=== PATIENT | female | born 1970 | race Caucasian/White ===

== ENCOUNTER 2017-02-01 19:29 | Emergency (ER) | payer BC ==
[2017-02-01 19:37] VITALS: BP 140/77
[2017-02-01] MEDS ORDERED: Aspirin Low Dose CHEW TAB* 81 MG PO ONE (19:53)
[2017-02-01] MEDS ORDERED: Nitroglycerin TAB 0.4 MG* 0.4 MG TAB SL ONE (19:53)
--- NOTE | 2017-02-01 20:07 | UC ---
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 HAD SOME ASSOCIATED SOB. HAS GOTTEN BETTER OVER THE DAY BUT IS PERSISTENT. NO NAUSEA OR SWEATS. PAIN RADIATED UP TO HER SHOULDERS. TOOK 2 BABY ASA AT HOME. - History of Current Complaint Chief Complaint: UCChestPain Stated Complaint: CHEST PAIN Time Seen by Provider: 02/01/17 19:36 Hx Obtained From: Patient, Family/Perforator Operator [employer] - MOM AND STEP DAD Onset/Duration: Sudden Onset, Lasting Hours, Still Present Timing: Constant Initial Severity: Moderate Current Severity: Moderate Pain Intensity: 5 Chest Pain Location: Mid Sternal Character: Tightness Aggravating: Nothing Alleviating: NTG 123 - BETTER AFTER 0.4MG NTG SL Associated Signs & Symptoms: Positive: Chest Pain, SOB. Negative: Fever, Diaphoresis, Nausea/Vomiting, Palpitations, Hemoptysis - Allergy/Home Medications Allergies/Adverse Reactions: Allergies Allergy/AdvReac Type Severity Reaction Status Date / Time No Known Allergies Allergy Verified 02/01/17 19:39 PMH/Surg Hx/FS Hx/Imm Hx Previously Healthy: Yes - Surgical History Surgical History: None - Family History Known Family History: Positive: Cardiac Disease - DAD - Social History Alcohol Use: Occasionally Substance Use Type: None Smoking Status (MU): Current Every Day Smoker Type: Cigarettes Amount Used/How Often: 1/2ppd Review of Systems Constitutional: Negative Respiratory: Shortness Of Breath Cardiovascular: Chest Pain Gastrointestinal: Negative Genitourinary: Negative All Other Systems Reviewed And Are Negative: Yes Physical Exam Triage Information Reviewed: Yes Appearance: Well-Appearing, No Pain Distress, Well-Nourished Vital Signs: Initial Vital Signs Temp 98.4 F 02/01/17 19:37 Pulse 101 02/01/17 19:37 Resp 18 02/01/17 19:37 BP 140/77 02/01/17 19:37 Pulse Ox 97 02/01/17 19:37 Vital Signs Reviewed: Yes Eyes: Positive: Conjunctiva Clear ENT: Positive: Hearing grossly normal Neck: Positive: Supple Respiratory Exam: Normal Cardiovascular: Positive: Pulses Normal, Murmur:Sys:Grade _?_/ - 1/ Abdomen Description: Positive: Soft Musculoskeletal: Positive: No Edema Neurological: Positive: Alert Psychological: Positive: Normal Response To Family, Age Appropriate Behavior Skin: Negative: rashes Diagnostics - EKG Cardiac Rate: NL - 91 BPM Cardiac Rhythm: Sinus: Normal Ectopy: None ST Segment: Non-Specific - MINIMAL ST ELEVATION V1, V2, V3 - Assessment/Plan Course Of Treatment: 2 ADDITIONAL LOW DOSE ASA GIVEN ALONG WITH 0.4MG NTG SL. PT REPORTS SOME IMPROVEMENT IN HER CP AFTER NTG. 2L OXYGEN BY NC. PIV PLACED AND PT TRANSPORTED BY AMBULANCE. - Clinical Impression Provider Diagnoses: CHEST PAIN - Physician Notifications Discussed Patient Care With: Shannon Escobedo - TO [facility]ANCE Time Discussed With Above Provider: 20:00 Instructed by Provider To: MD Will See In ED Discharge - Discharge Plan Condition: Stable Disposition: TRANS HIGHER LVL OF CARE FAC Referrals: No Primary Care Phys,NOPCP [Primary Care Provider] -
== END 2017-02-01 20:15 | disposition short-term general hospital (02) ==
LOC: UCEAST 19:29
DX: R07.2 Precordial pain (principal); Z72.0 Tobacco use
CPT/HCPCS: 93005; 99214; A9270-GY; G0463

== ENCOUNTER 2017-02-01 20:41 | Emergency (ER) | payer BC ==
[2017-02-01] MEDS ORDERED: Aspirin Low Dose CHEW TAB* 81 MG PO ONE (21:15)
[2017-02-01 21:25] LABS: Hematocrit 38 % (35-47); Mean Corpuscular HGB Conc 34 g/dl (31-36); Mean Corpuscular Hemoglobin 32 pg (27-31); Mean Corpuscular Volume 94 fL (80-97); Mean Platelet Volume 8 um3 (7.4-10.4); Red Blood Count 4.04 10^6/ul (4.0-5.4); Red Cell Distribution Width 14 % (10.5-15); White Blood Count 11.5 10^3/ul (3.5-10.8)
[2017-02-01 21:37] LABS: Albumin 3.9 g/dL (3.2-5.2); BUN/Creatinine Ratio 9.4 (8-20); Calcium 9.2 mg/dL (8.6-10.3); EGFR African American 92.2 (>60); EGFR Non-African American 71.7 (>60); Globulin 2.8 g/dL (2-4); Potassium 3.8 mmol/L (3.5-5.0); Total Bilirubin 0.4 mg/dL (0.2-1.0); Total Protein 6.7 g/dL (6.4-8.9)
--- NOTE | 2017-02-01 21:44 | RAD ---
INDICATION: Chest pain COMPARISON: None TECHNIQUE: An AP portable view obtained at 2119 hours is submitted. FINDINGS: Bones/Soft Tissues: There are no acute bony findings. Cardiomediastinal: The cardiomediastinal silhouette is normal. Lungs: There are no infiltrates. Pleura: There are no pleural effusions. Other: None IMPRESSION: NO ACTIVE DISEASE.
[2017-02-01] MEDS ORDERED: Pantoprazole IV* 40 MG IV ONE (21:58)
--- NOTE | 2017-02-02 01:05 | ED ---
Bello Warren Benjamin, scribed for Shannon Escobedo MD on 02/01/17 at 2141 . HPI Chest Pain - HPI Summary HPI Summary: 46yo female c/o sudden onset of 7/10 chest tightness at 1030 with difficulty breathing in deep. Symptoms lasted up to 1430 today. Pain resolved with time, subsided to 2/10 around 1430, but pt still came to just as a precaution to be evaluated, and was then transferred from to ED by ambulance. Pt received NTG, ASA, and O2 at and pain further subsided to 1/10. Pt is a light every day smoker. FHx of MS (father) at his 50s. - History of Current Complaint Chief Complaint: EDChestPainROMI Time Seen by Provider: 02/01/17 20:47 Hx Obtained From: Patient, Family/Lock And Dam Operator - mother and step dad Onset/Duration: Started Hours Ago - today at 1030, Atraumatic, Resolved Time of Onset: 10:30 Timing: Constant, Lasting Hours - 4.5 hours Initial Severity: Moderate Current Severity: Mild Pain Intensity: 1 Pain Scale Used: 0-10 Numeric Chest Pain Location: Mid Sternal Chest Pain Radiates To:: Shoulder - bilat shoulders Character: Dyspnea at Exertion, Tightness Aggravating Factor(s): Nothing Alleviating Factor(s): NTG 123, Oxygen, Other: - ASA additional given in . Pt had taken 2 ASA at home Associated Signs and Symptoms: Positive: Chest Pain, Shortness of Breath - Risk Factors Pulmonary Embolism Risk Factors: Smoking TAD Risk Factors: Smoking, Family Hx AMI/ACS Risk Factors: Family History, Smoking - Allergy/Home Medications Allergies/Adverse Reactions: Allergies Allergy/AdvReac Type Severity Reaction Status Date / Time No Known Allergies Allergy Verified 02/01/17 19:39 PMH/Surg Hx/FS Hx/Imm Hx Previously Healthy: Yes Endocrine/Hematology History: Denies: Hx Diabetes, Hx Thyroid Disease Cardiovascular History: Denies: Hx Hypertension Respiratory History: Denies: Hx Asthma, Hx Chronic Obstructive Pulmonary Disease (COPD) GI History: Denies: Hx Ulcer Infectious Disease History: No Infectious Disease History: Denies: Hx Hepatitis, Hx Human Immunodeficiency Virus (HIV), Hx of Known/ Suspected MRSA, Hx Shingles, Hx Known/Suspected VRE, Hx Known/Suspected VRSA, History Other Infectious Disease, Traveled Outside the [place] in Last 30 Days - Family History Known Family History: Positive: Cardiac Disease - DAD, [place] at his 50s - Social History Occupation: Employed Full-time Lives: With Family Alcohol Use: Occasionally Substance Use Type: Reports: None Smoking Status (MU): Current Every Day Smoker Type: Cigarettes Amount Used/How Often: 1/2ppd Review of Systems Constitutional: Negative Eyes: Negative ENT: Negative Positive: Chest Pain Positive: Shortness Of Breath Gastrointestinal: Negative Genitourinary: Negative Musculoskeletal: Negative Skin: Negative Neurological: Negative Psychological: Normal All Other Systems Reviewed And Are Negative: Yes Physical Exam Triage Information Reviewed: Yes Vital Signs On Initial Exam: Initial Vitals Pulse Resp Pulse Ox 93 17 98 02/01/17 20:48 02/01/17 20:48 02/01/17 20:48 Vital Signs Reviewed: Yes Appearance: Positive: Well-Appearing, No Pain Distress, Well-Nourished Skin: Positive: Warm, Skin Color Reflects Adequate Perfusion Head/Face: Positive: Normal Head/Face Inspection Eyes: Positive: Conjunctiva Clear ENT: Positive: Hearing grossly normal. Negative: Muffled/hoarse voice Neck: Positive: Supple Respiratory/Lung Sounds: Positive: Clear to Auscultation, Breath Sounds Present Cardiovascular: Positive: RRR, Pulses are Symmetrical in both Upper and Lower Extremities. Negative: Murmur, Rub, Leg Edema Left, Leg Edema Right Abdomen Description: Positive: Nontender, No Organomegaly, Soft. Negative: Distended, Guarding, McBurney's Point Tenderness, Peritoneal Signs, Pulsatile Mass Musculoskeletal: Positive: Strength/ROM Intact Neurological: Positive: Sensory/Motor Intact, Alert, Oriented to Person Place, Time. Negative: Facial Droop, Focal Deficit @, Slurred Speech Psychiatric: Positive: Affect/Mood Appropriate - Aren Coma Scale Coma Scale Total: 15 Diagnostics - Vital Signs Vital Signs Temp Pulse Resp BP Pulse Ox 02/01/17 21:00 91 16 113/94 98 02/01/17 20:53 88 19 112/72 99 02/01/17 20:50 99.5 F 90 16 112/72 99 02/01/17 20:48 93 17 98 - Laboratory Lab Results: Lab Results 02/01/17 02/01/17 Range/Units 21:00 21:00 WBC 11.5 H (3.5-10.8) 10^3/ul RBC 4.04 (4.0-5.4) 10^6/ul Hgb 13.0 (12.0-16.0) g/dl Hct 38 (35-47) % MCV 94 (80-97) fL MCH 32 H (27-31) pg MCHC 34 (31-36) g/dl RDW 14 (10.5-15) % Plt Count 299 (150-450) 10^3/ul MPV 8 (7.4-10.4) um3 Neut % (Auto) 64.9 (38-83) % Lymph % (Auto) 24.1 L (25-47) % Marion % (Auto) 8.7 (1-9) % Eos % (Auto) 1.5 (0-6) % Baso % (Auto) 0.8 (0-2) % Absolute Neuts (auto) 7.5 (1.5-7.7) 10^3/ul Absolute Lymphs (auto) 2.8 (1.0-4.8) 10^3/ul Absolute Monos (auto) 1.0 H (0-0.8) 10^3/ul Absolute Eos (auto) 0.2 (0-0.6) 10^3/ul Absolute Basos (auto) 0.1 (0-0.2) 10^3/ul Absolute Nucleated RBC 0.01 10^3/ul Nucleated RBC % 0 Lactic Acid 1.6 (0.5-2.0) mmol/L Result Diagrams: 02/01/17 21:00 02/01/17 21:00 Lab Statement: Any lab studies that have been ordered have been reviewed, and results considered in the medical decision making process. - Radiology CXR Xray Interpretation: No Acute Changes Radiology Interpretation Completed By: Radiologist - EKG 2049. Cardiac Rate: NL - 91bpm EKG Rhythm: Sinus Rhythm ST Segment: Normal Ectopy: None EKG Interpretation: normal AV and IV conduction time, normal QTC, normal axes, no acute changes EKG Comparison: No Significant Change - to EKG taken on 02/01/17 at 1937. Re-Evaluation - Re-Evaluation First Eval Re-Evaluation Time: 22:02 Comment: Evaluated pt with Dr. Boykin. The plan is to check troponin level 6 hrs later,if trop level is normal, d/c pt with follow up referral for stress test with her electrician telephone in weeks and if trop abnormal, admit pt. Gave IV pantoprazole 40mg for possible GERD. Chest Pain Course/Dx - Course Course Of Treatment: Reviewed medication lists and known allergies. 46yo female c/o sudden onset of 7/10 chest tightness at 1030 with difficulty breathing in deep. Symptoms lasted up to 1430 today. Pain resolved with time, subsided to 2/10 around 1430, but pt still came to just as a precaution. Pt received NTG, ASA, and O2 at and pain further subsided to 1/10. Pt is a light every day smoker. FHx of MS (father) at his 50s. Physical exam revealed normal heart and lungs sounds, with no calf tenderness or leg edema. Evaluated pt with Dr. Boykin. The plan is to check troponin level 6 hrs later,if trop level is normal, d/c pt with follow up referral for stress test with refrigeration system installer electrician telephone within 2 weeks and if trop abnormal, admit pt. Gave IV pantoprazole 40mg for possible GERD. Pt is in agreement with this plan, as she wants to attend her daughter's high school graduation on 02/02/17. - Chest Pain Differential Diagnosis/HQI/PQRI: Acute MS, ACS, Angina, Chest Wall, GI Disease, Pulmonary Embolism - Diagnoses Provider Diagnoses: Tobacco abuse disorder, Chest pain - Provider Notifications Discussed Care Of Patient With: Dino Boykin - disscussed case Time Discussed With Above Provider: 21:38 Discharge - Discharge Plan Condition: Stable Disposition: OTHER Discharge Disposition Comment: care to Dr. Iniguez at midnight, change of shift with 6 hr troponin pending Referrals: No Primary Care Phys,NOPCP [Primary Care Provider] - The documentation as recorded by the Bello stubbs Benjamin accurately reflects the service I personally performed and the decisions made by me, Shannon Escobedo MD.
[2017-02-02 03:06] VITALS: BP 108/63
--- NOTE | 2017-02-02 05:38 | CONSULT ---
Consult Consult: PCP: none Date/Time of Evaluation: 02/01/2017 2300 Reason for Consult: chest pain, consideration for observation HPI: Mrs Ron is a 46YO female whose daughter is graduating from high school tomorrow. 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 Pain gradually subsided to 2/10, but she became more anxious and so decided to present for evaluation after going out to eat with her mother & step-father. She presented to urgent care where a SL nitro completely alleviated her pain and recommendation to come to [facility] ED was made. ECG is without ischemia, initial troponin is 0.00. As she is wanting to attend her daughter's graduation, it is reasonable to perform a r/o in ED and discharge so long as she remains pain-free and her 6H troponin is normal. The alternative of observation with stress testing in the AM was also offered, but she would prefer to pursue stress testing as an outpatient. PMedHx denies Ambulatory Orders NK [No Home Medications Reported] 10/08/14 Allergies No Known Allergies Allergy (Verified 02/01/17 19:39) SocHx: 1/2PPD cigarettes, mild alcohol, denies recreational drugs; full code status FamHx: Father passed in his 50s of CAD. ROS: as above, otherwise reviewed and all were negative Constitutional: NAD, normally developed, overweight white female vitals: Vital Signs Temp 37.5 C 02/01/17 20:50 Pulse 79 02/02/17 03:00 Resp 19 02/02/17 03:00 BP 108/63 02/02/17 03:00 Pulse Ox 95 02/02/17 03:00 Intake & Output 02/01/17 02/01/17 02/02/17 11:59 23:59 11:59 Weight 83.915 kg HEENM: atraumatic; sclera/conjunctiva: non-icteric/clear; hearing: clinically intact; oropharynx: clear, mucosa moist Neck: soft tissue: non-tender; thyroid: normal Pulmonary: clear to auscultation bilaterally, good aeration, no accessory muscle use CV: RR/RR, normal S1S2, no carotid bruit, no jugular venous distention, 2+ B DP/ PT, no edema Abdominal: soft, non-distended, non-tender, no rebound/guarding/rigidity, normoactive bowel sounds, no hepatosplenomegaly or masses, no costovertebral angle tenderness Musculoskeletal: general: grossly intact; gait: stable Integumental: normal appearance and texture of exposed skin Psychiatric orientation: AA&O to PPS affect: calm mood: cooperative eye contact: good content: reliable responses: timely insight: good Testing: Lab Results 02/01/17 02/01/17 02/01/17 Range/Units 21:00 21:00 21:00 WBC 11.5 H (3.5-10.8) 10^3/ul RBC 4.04 (4.0-5.4) 10^6/ul Hgb 13.0 (12.0-16.0) g/dl Hct 38 (35-47) % MCV 94 (80-97) fL MCH 32 H (27-31) pg MCHC 34 (31-36) g/dl RDW 14 (10.5-15) % Plt Count 299 (150-450) 10^3/ul MPV 8 (7.4-10.4) um3 Neut % (Auto) 64.9 (38-83) % Lymph % (Auto) 24.1 L (25-47) % Davidson % (Auto) 8.7 (1-9) % Eos % (Auto) 1.5 (0-6) % Baso % (Auto) 0.8 (0-2) % Absolute Neuts (auto) 7.5 (1.5-7.7) 10^3/ul Absolute Lymphs (auto) 2.8 (1.0-4.8) 10^3/ul Absolute Monos (auto) 1.0 H (0-0.8) 10^3/ul Absolute Eos (auto) 0.2 (0-0.6) 10^3/ul Absolute Basos (auto) 0.1 (0-0.2) 10^3/ul Absolute Nucleated RBC 0.01 10^3/ul Nucleated RBC % 0 Sodium 138 (133-145) mmol/L Potassium 3.8 (3.5-5.0) mmol/L Chloride 107 (101-111) mmol/L Carbon Dioxide 23 (22-32) mmol/L Anion Gap 8 (2-11) mmol/L BUN 8 (6-24) mg/dL Creatinine 0.85 (0.51-0.95) mg/dL Est GFR ( Amer) 92.2 (>60) Est GFR (Non-Af Amer) 71.7 (>60) BUN/Creatinine Ratio 9.4 (8-20) Glucose 100 (70-100) mg/dL Lactic Acid 1.6 (0.5-2.0) mmol/L Calcium 9.2 (8.6-10.3) mg/dL Total Bilirubin 0.40 (0.2-1.0) mg/dL AST 18 (13-39) U/L ALT 11 (7-52) U/L Alkaline Phosphatase 55 (34-104) U/L Troponin I 0.00 (<0.04) ng/mL Total Protein 6.7 (6.4-8.9) g/dL Albumin 3.9 (3.2-5.2) g/dL Globulin 2.8 (2-4) g/dL Albumin/Globulin Ratio 1.4 (1-3) 02/01/17 02/02/17 Range/Units 23:51 03:05 WBC (3.5-10.8) 10^3/ul RBC (4.0-5.4) 10^6/ul Hgb (12.0-16.0) g/dl Hct (35-47) % MCV (80-97) fL MCH (27-31) pg MCHC (31-36) g/dl RDW (10.5-15) % Plt Count (150-450) 10^3/ul MPV (7.4-10.4) um3 Neut % (Auto) (38-83) % Lymph % (Auto) (25-47) % Davidson % (Auto) (1-9) % Eos % (Auto) (0-6) % Baso % (Auto) (0-2) % Absolute Neuts (auto) (1.5-7.7) 10^3/ul Absolute Lymphs (auto) (1.0-4.8) 10^3/ul Absolute Monos (auto) (0-0.8) 10^3/ul Absolute Eos (auto) (0-0.6) 10^3/ul Absolute Basos (auto) (0-0.2) 10^3/ul Absolute Nucleated RBC 10^3/ul Nucleated RBC % Sodium (133-145) mmol/L Potassium (3.5-5.0) mmol/L Chloride (101-111) mmol/L Carbon Dioxide (22-32) mmol/L Anion Gap (2-11) mmol/L BUN (6-24) mg/dL Creatinine (0.51-0.95) mg/dL Est GFR ( Amer) (>60) Est GFR (Non-Af Amer) (>60) BUN/Creatinine Ratio (8-20) Glucose (70-100) mg/dL Lactic Acid (0.5-2.0) mmol/L Calcium (8.6-10.3) mg/dL Total Bilirubin (0.2-1.0) mg/dL AST (13-39) U/L ALT (7-52) U/L Alkaline Phosphatase (34-104) U/L Troponin I 0.00 0.00 (<0.04) ng/mL Total Protein (6.4-8.9) g/dL Albumin (3.2-5.2) g/dL Globulin (2-4) g/dL Albumin/Globulin Ratio (1-3) ECG, personally reviewed: NSR, no ischemia CXR, personally reviewed: IMPRESSION: NO ACTIVE DISEASE. Impression: 46F presenting with chest pain DIAGNOSIS & PLAN Primary chest pain : repeat 6H troponin, if negative may be discharged to f/u w/ on-call cardiology for outpatient stress w/i the next 2-3 weeks : return to ED via 911 for any chest discomfort, SOB, abnormal sweating, unexplained N/V, palpitations, light-headedness, or other issue which she feels needs emergency evalution : no lifting >10# or exertion until cleared by cardiology : give IV pantoprazole 40mg x1 now : Mrs Asaf Mitchell expresses understanding of the above, repeats, & agrees.
== END 2017-02-02 03:53 ==
LOC: ED 20:41
DX: R07.9 Chest pain, unspecified (principal); R06.02 Shortness of breath; F17.210 Nicotine dependence, cigarettes, uncomplicated
CPT/HCPCS: 36415; 71010; 80053; 83605; 84484; 85025; 96374; 99285

== ENCOUNTER 2018-04-17 11:51 | Emergency (ER) | payer BC ==
--- NOTE | 2018-04-17 13:08 | RAD ---
Indication: Left leg pain. 2 views of the left lower leg demonstrates no fracture. No other bone or joint abnormality is identified. IMPRESSION: Unremarkable left leg.
--- NOTE | 2018-04-17 13:15 | UC ---
Lower Extremity/Ankle HPI - HPI Summary HPI Summary: Jacquelin 47 yo female c/o intermittent left lat leg pain. Pain is deep, excruciating. No known recent or remote trauma. No p/d/w. No rash. No GI issues. No sob / cp / palpitations. - History of Current Complaint Chief Complaint: UCLowerExtremity Stated Complaint: LEG PAIN Time Seen by Provider: 04/17/18 12:19 Hx Obtained From: Patient Hx Last Menstrual Period: 03/24/18 Pain Intensity: 0 - Allergies/Home Medications Allergies/Adverse Reactions: Allergies Allergy/AdvReac Type Severity Reaction Status Date / Time No Known Allergies Allergy Verified 02/01/17 19:39 PMH/Surg Hx/FS Hx/Imm Hx Previously Healthy: Yes - Surgical History Surgical History: None - Family History Known Family History: Positive: Cardiac Disease - DAD, [place] at his 50s - Social History Occupation: Employed Full-time Alcohol Use: Occasionally Substance Use Type: None Smoking Status (MU): Current Every Day Smoker Type: Cigarettes Amount Used/How Often: 1/2ppd Review of Systems Constitutional: Negative Skin: Negative Eyes: Negative ENT: Negative Respiratory: Negative Cardiovascular: Negative Gastrointestinal: Negative Genitourinary: Negative Motor: Other - see hpi Musculoskeletal: Other: - see hpi Neurological: Negative Psychological: Negative Is Patient Immunocompromised?: No All Other Systems Reviewed And Are Negative: Yes Physical Exam Triage Information Reviewed: Yes Appearance: Well-Appearing, Well-Nourished Vital Signs: Initial Vital Signs Temp 98.7 F 04/17/18 12:07 Pulse 76 04/17/18 12:07 Resp 18 04/17/18 12:07 BP 133/85 04/17/18 12:07 Pulse Ox 99 04/17/18 12:07 Vital Signs Reviewed: Yes Eye Exam: Normal ENT Exam: Normal Neck exam: Normal Respiratory Exam: Normal Respiratory: Positive: Chest non-tender, Lungs clear, Normal breath sounds, No respiratory distress, No accessory muscle use Cardiovascular Exam: Normal Cardiovascular: Positive: RRR, No Murmur, Pulses Normal, Brisk Capillary Refill Musculoskeletal Exam: Other Neurological Exam: Normal - distal sens + LT. Cap refill is good bilat LE. Without skin discoloration. DP/PT present and equal bilat Psychological Exam: Normal Skin Exam: Normal - no visible or reported rash or ecchymosis Lower Extremity Course/Dx - Course Course Of Treatment: Will check xray, u/s doppler. Xray L tib -fib nad. U/s LLE no dvt. Questions as posed answered to the best of my ability. Will refer to orthopedist. Also recommend to establish care with pcp. - Differential Dx/Diagnosis Provider Diagnoses: LLE arthralgia Discharge - Sign-Out/Discharge Documenting (check all that apply): Patient Departure All imaging exams completed and their final reports reviewed: Yes - Discharge Plan Condition: Stable Disposition: HOME Patient Education Materials: Ibuprofen (By mouth), Arthralgia (ED), Safe Use of NSAIDs (ED) Referrals: [facility] [[facility]] Farrukh Soriano MD [Medical Doctor] - Additional Instructions: Follow up with primary care physician, in the next month if possible. Follow up with orthopedic surgeon, in the next 1-2 weeks. Please seek medical attention for worse or new problems. - Billing Disposition and Condition Condition: STABLE Disposition: Home
--- NOTE | 2018-04-17 14:08 | RAD ---
HISTORY: deep pain mid lat left leg no known trauma COMPARISONS: None relevant TECHNIQUE: Multiple transverse and longitudinal ultrasound images were obtained of the left lower extremity from the level of the common femoral vein inferiorly through to the infrapopliteal veins using grayscale, color Doppler, and spectral Doppler imaging with and without compression and with augmentation. Comparison images were obtained of the contralateral common femoral vein. FINDINGS: VEINS: The venous system of the left lower extremity is compressible throughout its course, with normal flow on color Doppler imaging and normal response to augmentation on spectral Doppler imaging. SOFT TISSUES: Unremarkable. OTHER FINDINGS: None. IMPRESSION: NO LEFT LOWER EXTREMITY DEEP VEIN THROMBOSIS
[2018-04-17 14:59] VITALS: BP 128/80
== END 2018-04-17 14:53 | disposition home or self-care (01) ==
LOC: UCEAST 11:51
DX: M79.605 Pain in left leg (principal); F17.210 Nicotine dependence, cigarettes, uncomplicated
CPT/HCPCS: 99211; G0463